=== PATIENT | female | born 1950 | race Caucasian/White ===

== ENCOUNTER 2025-04-12 21:14 | Inpatient (IN) | payer MEDICARE, SELFPAY ==
[2025-04-12 14:47] VITALS: BP 138/77
[2025-04-12 15:23] VITALS: BMI 26.7
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
[2025-04-12 16:33] LABS: ALT (SGPT) < 10 U/L (0-35); AST (SGOT) 16 U/L (14-36); Albumin 3.9 g/dl (3.5-5.0); Alkaline Phosphatase 76 U/L (38-126); Blood Urea Nitrogen 14 mg/dl (7-17); Calcium 8.8 mg/dl (8.4-10.2); Carbon Dioxide 24 mmol/L (22-30); Chloride 109 mmol/L (98-107); Estimated Creatinine Clearance 70 ml/min; Glucose 111 mg/dl (70-99); Potassium 4.2 mmol/L (3.5-5.1); Sodium 140 mmol/L (135-145); Total Protein 7.6 g/dl (6.3-8.2); eGFR > 60.00
[2025-04-12 16:44] LABS: Hematocrit 25.1 % (37.0-47.0); Hemoglobin 7.1 g/dL (12.0-16.0); Mean Corp Hgb Conc. 28.3 g/dL (33.0-37.0); Mean Corpuscular Volume 65.2 fL (81.0-99.0); Nucleated Red Blood Cells % 0 %; Platelet Count 737 10^3/uL (130-400); Red Cell Dist. Width 19.3 % (11.5-14.5)
[2025-04-12 16:49] LABS: Normal RBC Morphology No
[2025-04-12 16:50] LABS: Anisocytosis 1+; Hypochromasia 1+; Macrocytosis 1+; Ovalocytes Occasional; Spherocytes 1+; Tear Drop Red Blood Cells 1+
[2025-04-12] MEDS: MAXIPIME 2000 MG IV (19:24)
[2025-04-12] MEDS: VANCOCIN 540 MG IV (19:45)
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
[2025-04-12 21:53] VITALS: BP 116/65
--- NOTE | 2025-04-12 22:37 | PHA.VAN.IN ---
Assessment
- Assessment
Renal Function: Unknown baseline
Concomitant Antimicrobials: CEFEPIME
- Previous Dosing Experience
Previous Regimen: NONE
AUC Dosing Plan
- Dosing Variables
Dosing Weight (kg): 77.1
Dosing CrCl (ml/min): 70
Vd coefficient (L/kg): 0.7
- Empiric Dosing
Initial / Loading Dose: 2GM
Maintenance Regimen: 750MG IV Q12H
Estimated AUC (mcg*h/mL): 459
Estimated Peak (mcg*h/mL): 26.3
Estimated Trough (mcg/ml): 13.2
Estimated Half Life (H): 11.1
Pharmacokinetics Vancomycin I
- -
Patient Age: 74
Patient Sex: Female
Vancomycin Day #: 1
Indication: Bone And Joint
Requesting Provider: KIMBERLEY
Height / Weight:
Height 5 ft 7 in
Actual Weight 77.111 kg
Pertinent Past Medical History: NO PMH
- Vital Signs / Lab Results
Temp Pulse Resp BP Pulse Ox
99.1 F 78 16 116/65 98
04/12/25 14:47 04/12/25 21:53 04/12/25 21:53 04/12/25 21:53 04/12/25 21:53
Lab Results - Hematology
04/12/25
15:54
WBC 10.7
Lab Results - Chemistry
04/12/25
15:54
BUN 14
Creatinine 0.7
Estimated Creat Clear 70
Albumin 3.9
04/12/25
15:54
Lactic Acid 1.3
[2025-04-12 23:01] VITALS: BP 137/72; BMI 23.1
[2025-04-12 23:13] LABS: Iron 21 ug/dl (37-170)
[2025-04-12 23:22] LABS: Total Iron Binding Capacity 441 ug/dl (265-497)
[2025-04-12 23:49] LABS: Ferritin 3.8 ng/ml (11.1-264.0)
[2025-04-13] VITALS (7 sets, daily range): BP systolic 108–139; BP diastolic 59–86; BMI 22.5
[2025-04-13] MEDS: MAXIPIME 2000 MG IV (04:32)
[2025-04-13] MEDS: STERILE WATER FOR INJECTION 10 ML IV (04:32)
[2025-04-13] MEDS: VANCOCIN 150 IV (06:13)
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
[2025-04-13 08:11] LABS: Hematocrit 21.8 % (37.0-47.0); Hemoglobin 6.3 g/dL (12.0-16.0); Mean Corp Hgb Conc. 28.9 g/dL (33.0-37.0); Mean Corpuscular Volume 64.7 fL (81.0-99.0); Platelet Count 590 10^3/uL (130-400); Red Cell Dist. Width 19.0 % (11.5-14.5)
[2025-04-13 08:36] LABS: Blood Urea Nitrogen 9 mg/dl (7-17); Calcium 8.6 mg/dl (8.4-10.2); Carbon Dioxide 20 mmol/L (22-30); Chloride 110 mmol/L (98-107); Estimated Creatinine Clearance 81 ml/min; Glucose 99 mg/dl (70-99); Potassium 4.2 mmol/L (3.5-5.1); Sodium 137 mmol/L (135-145); eGFR > 60.00
[2025-04-13 09:02] LABS: LDH 168 U/L (120-246); Magnesium 2.3 mg/dl (1.6-2.3)
[2025-04-13 09:06] LABS: Reticulocyte Count 1.1 % (0.4-2.8)
--- NOTE | 2025-04-13 10:31 | CON.ONC ---
Consultation
-
Date Consultation Requested: 04/13/25
Date Consultation Performed: 04/13/25
Requesting Provider: Ahmet Deleon
Performing Provider: prasanth hernandez
Reason for Consultation: skin lesion c/f malignancy
Impression
Impression
- right chest wound
- Severe iron deficiency anemia
Plan
Plan
# chest wound
- slowly growing ulcerated mass involving right chest wall over 1 year per pt that started as small 'pimple'. no fevers, increased warmth or WBC to support infectious etiology.
- CT chest showed large ST defect extending to clavicle with osteomyelitis changes in bone. no cervical or axillary adenopathy on exam. no chest adenopathy or lung lesions in imaging.
- s.p bx today. path pending.
# Iron Deficiency anemia
- severe TUCKER on presentation with hgb down to 6.3 g/dl today, ferritin 3.5 ng/ml. Unclear if this is all from wound. denies melena, BRBPR, hematuria.
- s/p 1 unit pRBCs ordered.
- agree with IV iron repletion in-pt. recommend continuing PO ferrous sulfate 325 mg daily on discharge.
will arrange hematology follow up to review pending path and ongoing anemia management.
Patient History
History of Present Illness
Alice is a 74y F with no known PMH who presented to ED for evaluation of draining wound on the R shoulder. She first noted a small red lesion over the R clavicle approximately one year ago that progressively grew larger, ulcerated with
occasional bleeding and yellow discharge. labs on admission notable for hgb 7.1 g/dl, microcytic with severe iron depletion. Lactate, WBC normal. CT chest showed large soft tissue defect along the anterior/superior aspect of the right shoulder
extending to the underlying clavicle which demonstrates probable chronic osteomyelitis change. No overt soft tissue abscess. A component of acute osteomyelitis is not excluded by CT. no suspicious lung nodules or adenopathy. She does not follow up
with 's regularly. Denies melena, BRBPR, hematuria. Denies new back or bone pain, abdominal pain, ZUNIGA, dizziness, fevers. Hgb drop to 6.3 g/dl today, ordered 1 unit pRBCs and started on IV iron.
Patient Medication
�Medication �Instructions �Recorded �Confirmed �Last Taken �Type
Doterra Vitamin Supplement 3 active pill PO DAILY Supplement 04/12/25 04/12/25 Unknown History
Active Medications
Generic Name Dose Route Start Last Admin
Trade Name Freq PRN Reason Stop Dose Admin
Acetaminophen 650 mg 04/12/25 22:23
Acetaminophen 325 Mg Tablet PO 05/10/25 22:22
Q4HPRN PRN
Mild Pain / Temp > 101
Cefepime HCl 2,000 mg 04/13/25 04:00 04/13/25 04:32
Cefepime Hcl 2,000 Mg/12.5 Ml Vial IV 2,000 mg
Q8H FREEMAN Administration
Vancomycin HCl 750 mg in 150 mls @ 150 mls/hr 04/13/25 06:00 04/13/25 06:13
Vancocin IV 150 mls
Q12H FREEMAN Administration
Protocol
Ferric Sodium Gluconate 110 mls @ 110 mls/hr 04/13/25 14:00
Complex 125 mg/ Sodium IV 04/17/25 14:59
Chloride DAILY@1400 FREEMAN
Sodium Chloride 0 flush 04/12/25 23:00
Sodium Chloride 0.9% (Flush) Syringe IV 05/10/25 22:59
PER PROTOCOL FREEMAN
Sterile Water 10 ml 04/13/25 04:00 04/13/25 04:32
Sterile Water For Injection 10 Ml Vial IV 05/11/25 03:59 10 ml
Q8H FREEMAN Administration
Review of Systems
-
History Source: Patient
Constitutional: Reports Fatigue; Denies Fever or Weight Loss
Respiratory: Denies Cough or Trouble Breathing
Cardiac: Denies Chest Pain or Palpitations
GI: Denies Abdominal Pain, Nausea, Diarrhea, Bloody Stools or Black Stools
: Denies Bleeding or Dark Urine
Musculoskeletal: Denies Joint Pain
Skin: Reports Other (right chest wound )
Neuro: Denies Dizzy, Headache or Lightheadedness
Hematologic/Lymphatic: Reports Bleeding (from wound ); Denies Swollen Glands or Bruising
Physical Exam
-
General: Well Developed, Well Nourished and No Apparent Distress
HEENT: Negative Jaundice
Cardiology: Normal Sinus Rhythm
Pulmonary: Clear; Negative Rhonchi
GI: Soft; Negative Distended
Musculoskeletal: No Cyanosis and No Edema
Extremities: Negative Edema
Neurology: Non Focal and No Lateralizing Symptoms
Skin: Lesions (large ulcerated lesion with serosanguinous discharge, hyperpigmented surrounding skin without marked erythema. )
Hematologic / Lymphatic: No Lymphadenopathy
Labs
Lab Results
WBC 8.2 10^3/uL (4.8-10.8) 04/13/25 06:41
RBC 3.37 10^6/uL (4.20-5.40) L 04/13/25 06:41
Hgb 6.3 g/dL (12.0-16.0) L* 04/13/25 06:41
Hct 21.8 % (37.0-47.0) L 04/13/25 06:41
MCV 64.7 fL (81.0-99.0) L 04/13/25 06:41
MCH 18.7 pg (27.0-31.0) L 04/13/25 06:41
MCHC 28.9 g/dL (33.0-37.0) L 04/13/25 06:41
RDW 19.0 % (11.5-14.5) H 04/13/25 06:41
Plt Count 590 10^3/uL (130-400) H 04/13/25 06:41
MPV 9.4 fL (7.4-10.4) 04/13/25 06:41
Abs Immat Gran (auto) 0.0 10^3/uL (0-0.05) 04/12/25 15:54
Absolute Neuts (auto) 8.3 10^3/uL (1.4-6.5) H 04/12/25 15:54
Absolute Lymphs (auto) 1.6 10^3/uL (1.2-3.4) 04/12/25 15:54
Absolute Monos (auto) 0.7 10^3/uL (0.1-0.6) H 04/12/25 15:54
Absolute Eos (auto) 0.0 10^3/uL (0-0.7) 04/12/25 15:54
Absolute Basos (auto) 0.1 10^3/uL (0-0.2) 04/12/25 15:54
Immature Gran % 0.2 % (0-0.5) 04/12/25 15:54
Neutrophils % 77.6 % (42.2-75.2) H 04/12/25 15:54
Lymphocytes % 14.6 % (20.5-51.1) L 04/12/25 15:54
Monocytes % 6.9 % (1.7-9.3) 04/12/25 15:54
Eosinophils % 0.2 % (0-6) 04/12/25 15:54
Basophils % 0.5 % (0-2) 04/12/25 15:54
Creatinine 0.6 mg/dL (0.6-1.0) 04/13/25 06:41
Vital Signs
Vital Signs
Temp Pulse Resp BP Pulse Ox
97.9 F 78 18 139/86 98
04/13/25 07:49 04/13/25 07:49 04/13/25 07:49 04/13/25 07:49 04/13/25 07:49
[2025-04-13] MEDS: XYLOCAINE 2% WITH EPINEPHRINE 20 ML INFIL (11:05)
--- NOTE | 2025-04-13 11:07 | WOUNDNOTE ---
RIGHT SHOULDER WOUND
--- NOTE | 2025-04-13 11:07 | WOUNDNOTE ---
RIGHT SHOULDER WOUND
--- NOTE | 2025-04-13 11:09 | PHA.VAN.FU ---
Vancomycin Assessment / Plan
- Assessment
Renal Function: Stable
WBC's are: WNL
In the past 24 hrs, patient has been: Afebrile
Concomitant Antimicrobials: cefepime
- Dosing Plan
Continue: Vanc 750mg Q12H
- Monitoring Plan
No level(s) ordered at this time: consider levels in next few days
- Follow Up
Pharmacy will continue to follow.
Vancomycin Follow UP
- -
Patient Age: 74
Patient Sex: Female
Vancomycin Day #: 2
Indication: Bone And Joint
Requesting Provider: Dr. Palomo
Pertinent Antimicrobial Allergies:
no pertinent antibiotic allergies
Height / Weight:
Height 5 ft 7 in
Actual Weight 65.005 kg
- Vital Signs / Lab Results
Temp Pulse Resp BP Pulse Ox
97.9 F 78 18 139/86 98
04/13/25 07:49 04/13/25 07:49 04/13/25 07:49 04/13/25 07:49 04/13/25 07:49
Lab Results - Hematology
04/12/25 04/13/25
15:54 06:41
WBC 10.7 8.2
Lab Results - Chemistry
04/12/25 04/13/25
15:54 06:41
BUN 14 9
Creatinine 0.7 0.6
Estimated Creat Clear 70 81
Albumin 3.9
04/12/25
15:54
Lactic Acid 1.3
--- NOTE | 2025-04-13 11:09 | WOUNDNOTE ---
[facility] RN NOTE: Reviewed chart and met with patient. Per chart review and patient report, wound has evolved over the past [address] demonstrates probable osteomyelitis. See worklist for measurements. No odor noted and patient denies pain and
discomfort. A moderate amount of serous drainage was noted. Wound left covered with ABD's as biopsy is planned shortly. Discussed wound care options with patient with the goal being comfort and drainage management. Patient prefers to keep ABDs in
place at this time, but may be agreeable packed gauze at a later time. Support given to patient throughout assessment. Patient ambulates, turns and is on a [employer]um[employer]. Heels and sacrum intact. KARYN Fraire given update. Will follow as needed.
--- NOTE | 2025-04-13 11:35 | CON.GS ---
Addendum entered and electronically signed by Misael Carvalho MD 04/13/25 12:30:
I was physically present and personally performed the kilgore portions of the surgical evaluation and/or procedure with the resident. I discussed the findings, reviewed the resident�s note, and confirmed the medical decision-making. I provided direct
supervision as required and agree with the assessment and plan as documented with the following additions/corrections:
74F lives alone with 1 year history of festering wound to right chest and clavicle area. Reports weight loss over this period as well. On exam a [id number] fungating mass is present with fibrinous exudate and rolled borders is present. There is no
fluctuance or odor. is consulted for biopsy.
Procedure in detail:
Informed consent obtained
Skin prepped with betadine
1% lido with epi infiltrated into the skin
3mm punch biopsy x2 obtained from the edge of the lesion incorporating normal skin
Hemostasis achieved with direct pressure
DSD applied.
Change dressing daily or as needed for saturation
Local wound care
Pt was advised this is likely malignancy and the prognosis is likely poor.
All other care as per primary team
Pls call with questions
Original Note:
Consultation
-
Date/Time Consultation Requested: 04/12/2025
Date/Time Consultation Performed: 04/13/2025
Requesting Provider: [place]
Performing Provider: Misael Carvalho
Reason for Consultation: Ulcerated wound-right chest
Medical History
-
Chief Complaint: 74 y/o F with no known PMH presents to ED for R shoulder wound evaluation
History of Present Illness:
Patient is a 74y F with no known PMH who presents to ED for evaluation of wound on the R shoulder. Patient states that she initially noted a small red lesion over the R clavicle at least a year ago and that it appeared shortly after she had a
brief shock / electrocution while changing a light bulb in a lamp. This was a small, flat, red spot that gradually increased in size. It then 'opened up' in the middle. Patient denies any blistering, pustule, pimple appearing lesion. The opening
became progressively larger. Patient states that this wound bled occasionally, as well as produced thick, yellow drainage/discharge. Patient states that she was applying Neosporin without any improvement in her symptoms. Patient states that she
doesn't see a PCP regularly. She also states that she tried to be healthy by eating alot of soups and salads. Patient denies noticing any weight change, but admits she used to be 200 lbs and now her clothes are too big for her. When asked, patient
states she probably lost all that weight because she doesn't have much of an appetite. Patient rates her pain a 0/10 and states that she didn't even really notice how bad her wound had gotten until her friends pointed it out and encouraged her to
come into the ED. When the patient was told that this wound could be cancerous and that she'd need a biopsy, she didn't seem to grasp the full weight of the situation. She hated even the thought of having to go through radiation and chemotherapy,
stating that those treatments are poisonous to the body and that she would rather try an alternative like Vitamin C.
Past Medical History
Past Medical History: None (Patient seems to be unable to remember. )
Past Surgical History: None
Social History
Tobacco: Non-Smoker
Alcohol: Occasional
Drug: None
Personal: Single
Living: Alone
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
Family History
Family History: Reviewed & Noncontributory and Other (Patient states that all her immediate relatives are including her parents and her siblings. )
Allergies / Home Medications
Allergy/AdvReac Type Severity Reaction Status Date / Time
222aspirin Allergy facial Verified 04/12/25 16:22
swelling
in 2006
ibuprofen Allergy facial Verified 04/12/25 16:22
swelling
in 2006
�Medication �Instructions �Recorded �Confirmed �Type
Doterra Vitamin Supplement 3 active pill PO DAILY Supplement 04/12/25 04/12/25 History
Review of Systems
-
Unable to obtain full review of systems at this time due to: Acuity
History Source: Patient
All other systems: Negative unless noted
Constitutional: Weight Gain (Patient states she gained approximately 25 lbs over the past month. )
Skin: Other (Large ulcerated lesion over R anterior shoulder. Nodular edges. Scant sanguinous discharge. )
A 10 point review of systems was completed, and was negative except as per HPI.
Physical Exam
Vital Signs
Temp Pulse Resp BP Pulse Ox
97.9 F 78 18 139/86 98
04/13/25 07:49 04/13/25 07:49 04/13/25 07:49 04/13/25 07:49 04/13/25 07:49
04/12/25 04/13/25 04/14/25
06:59 06:59 06:59
Actual Weight 65.005 kg
Body Mass Index (BMI) 22.5
Lab Results
04/13/25 06:41
04/13/25 06:41
WBC 8.2 10^3/uL (4.8-10.8) 04/13/25 06:41
Hgb 6.3 g/dL (12.0-16.0) L* 04/13/25 06:41
Hct 21.8 % (37.0-47.0) L 04/13/25 06:41
Plt Count 590 10^3/uL (130-400) H 04/13/25 06:41
Abs Immat Gran (auto) 0.0 10^3/uL (0-0.05) 04/12/25 15:54
Neutrophils % 77.6 % (42.2-75.2) H 04/12/25 15:54
AFVSS: Afebrile. Normotensive.
Labs: WBC Count WNL. RBC is very low at 6.3. Patient needs a blood transfusion.
Chest CT with IV Contrast: Large soft tissue defect along the anterior/superior aspect of the right shoulder extending to the underlying clavicle which demonstrates probable chronic osteomyelitis change. No overt soft tissue abscess.
Physical Exam
General: No Apparent Distress and Comfortable
HEENT: Normocephalic, Anicteric and Atraumatic
Respiratory: Non Labored Respirations
Skin: Other (Large ulcerated lesion over R anterior shoulder. Nodular edges. Scant sanguinous discharge.)
Psych: Calm
Data Reviewed
-
CT Scan: Report Reviewed by me
Critical Care Time (in minutes): 45
Total Time Spent with Patient (in minutes): 60
Assessment / Plan
-
74 y/o F with no known PMH presenting to the ED for evaluation of wound on right shoulder.
Patient is informed that wound might be cancerous.
Confirm pathology via Biopsy of edge of the ulcerated skin wound.
Biopsy performed. Samples collected. Wound repacked. Pending pathology.
Patient is informed that surgery is not a viable treatment plan to treat her wound because it is too evolved.
Patient is informed that she might have to undergo radiation and chemotherapy, depending on pathology results.
Heme/Onc consult needed for low hemoglobin (needs a blood transfusion), and to discuss pathology results.
Psychiatric consult requested to help patient process stressful news.
WBC count WNL and afebrile
Patient can be discharged
Pending pathology review of biopsy specimen results, patient will be informed of next steps.
[2025-04-13 12:12] LABS: Folate 15.1 ng/ml (2.76-20); Vitamin B12 390 pg/ml (239-931)
[2025-04-13] MEDS: MAXIPIME IV (12:34)
--- NOTE | 2025-04-13 12:34 | CON.ID ---
Consultation
-
Date/Time Consultation Requested: 04/12/2025 2223
Date/Time Consultation Performed: 04/13/2025 1200
Requesting Provider: Dr. Head
Performing Provider: Dr. Espino
Reason for Consultation: Right chest wound
Chief Complaint / Past History
History of Present Illness
Alice Bean is a 74-year-old female being evaluated at the request of Dr. Palomo in regards to a right chronic chest wound. History is obtained from chart review, along with patient interview.
The patient has no significant past medical history that she knows of, and states that approximately 6 to 12 months ago she recalls changing a light bulb and she was 'shocked' by it. Thereafter, she noted a small red area on her right
supraclavicular area. Over the intervening time the area has grown in size and has ulcerated. She reports that she has been keeping it clean and washing it daily. She has been using frankincense, along with cedar tree oil to the area and believes
that it 'may be helping'. Ultimately, her friends noted the ulceration, and advised her to come to the emergency room for further care.
Since admission, the area has been imaged by CAT scan and has suggested osteomyelitis. A biopsy of the area has been taken today by General Surgery.
The patient denies any fevers or chills. She denies any specific pain, but notes that the area is 'sore '.
Past History
Past Medical History: None
Past Surgical History: Other (Hernia repair)
Allergy History:
aspirin Allergy (Verified 04/12/25 16:22)
facial swelling in 2006
ibuprofen Allergy (Verified 04/12/25 16:22)
facial swelling in 2006
Medications Reviewed: Yes
Current Antibiotics:
Vancomycin
Cefepime
Social History
Tobacco: Non-Smoker
Alcohol: Occasional
Drug: None
Personal: Single
Living: Alone
Employment: Retired
Family History
Family History: Not Pertinent
Review of Systems
Vital Signs
Temp Pulse Resp BP Pulse Ox
97.9 F 78 18 139/86 98
04/13/25 07:49 04/13/25 07:49 04/13/25 07:49 04/13/25 07:49 04/13/25 07:49
Physical Exam
Physical Exam
Constitutional: No Acute Distress, Well Developed, Comfortable and Non-toxic
Eyes: No Conjunctival Hemorrhage and Sclera Anicteric
Oral: No Thrush and No Ulcers
Cardiovascular: S1/S2; Negative S3/S4
Pulmonary: Non Labored
Gastrointestinal: Soft, Non Tender, Non Distended and Normal Bowel Sounds
Extremities: Negative Edema, Cyanosis or Erythema
Wound: Other (Right supraclavicular wound with fungating tissue. No noted purulence or significant drainage.)
Neurological: Awake and Alert
Psychological: Calm
Lab / Diagnostic Study Results
04/13/25 06:41
04/13/25 06:41
Abs Immat Gran (auto) 0.0 10^3/uL (0-0.05) 04/12/25 15:54
Absolute Neuts (auto) 8.3 10^3/uL (1.4-6.5) H 04/12/25 15:54
Absolute Lymphs (auto) 1.6 10^3/uL (1.2-3.4) 04/12/25 15:54
Absolute Monos (auto) 0.7 10^3/uL (0.1-0.6) H 04/12/25 15:54
Absolute Basos (auto) 0.1 10^3/uL (0-0.2) 04/12/25 15:54
Immature Gran % 0.2 % (0-0.5) 04/12/25 15:54
Neutrophils % 77.6 % (42.2-75.2) H 04/12/25 15:54
Lymphocytes % 14.6 % (20.5-51.1) L 04/12/25 15:54
Monocytes % 6.9 % (1.7-9.3) 04/12/25 15:54
Eosinophils % 0.2 % (0-6) 04/12/25 15:54
Basophils % 0.5 % (0-2) 04/12/25 15:54
Lactic Acid 1.3 mmol/L (0.7-2.0) 04/12/25 15:54
Microbiology Results
Micro:
04/12/25 23:35 MRSA Screen - Pending
Nose
04/12/25 15:54 Blood Culture - Pending
Blood/Venous
04/12/25 15:54 Blood Culture - Pending
Blood/Venous
Imaging:
04/12/2025 CT chest with IV contrast: There is a large soft tissue defect along the anterior/superior aspect of the right shoulder, extending to the underlying clavicle with demonstrates probable chronic osteomyelitis changes. No overt soft tissue
abscess. Acute component of acute osteomyelitis is not excluded by CAT scan. A small nodule in the lingula, likely benign.
Assessment / Plan
Right anterior chest wall fungating mass
Right clavicular osteomyelitis by CAT scan
- Suspect malignant infiltration of the bone rather than osteomyelitis.
Anemia
Recommendations:
Exam of the wound does not reveal significant findings of infection.
Given clinical appearance, suspect all findings are secondary to the yet undetermined malignancy. (?Basal cell, ?Squamous cell)
Discontinue further antibiotics.
Continue with local care to the right clavicular area.
Await pathology.
Care Review
Plan reviewed with: Physician (Hospitalist)
[2025-04-13] MEDS: STERILE WATER FOR INJECTION IV (12:35)
--- NOTE | 2025-04-13 13:06 | CON.MD ---
Consultation - Medical
-
patient seen chart reviewed. discussed with nursing. a friend was at the bedside. this consult was done today april 13 2025. patient is a 74 year old woman who comes to er with a lesion on her chest which she thought originated with a burn. she
was rx it with frankincense and dedar tree oil but a friend convinced her to come to er. at this point there is concern that this represents a malignancy. the patient was also noted to be severely anemic. she admits she had lost a lot of weight but
in many ways felt okay. she just thought it was so hot her appetite was diminished. she is an active person and had continued to mow her lawn with a tractor. she said she continued to see friends. she is active in a local tenriism. when i saw her she
was quite literally chowing down on a huge omelet with toast yoghut fruit cocktail and several beverages. she told me she loves to eat. she did understand that she might have a malignancy and was praying this was not the case. she has no hx of
treatment for depression or anxiety except when there were painful life events eg the sudden of her brother in the sleep is okay she has never had suicidal thoughts. energy level was s/w diminshed but she thought it was the heat
spoke with nursing who did not see patient as depressed and described she was easy to care for.
past psych hx see above
past medical hx see above re chest lesion. severe anemia patient says she will have transfusion. takes vitamins denies any acute ongoing medical complaints.
substance abuse denied
fh denied
social resides in own home. takes care of grounds about an acre on her own. retired. worked in [employer] for many years. has + friends. belongs to a tenriism. raised locally denies hx of trauma patient tells me she has always been a rebellious sort
not given to observing conventions. also told me saravanan is her man.
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
by her medical issues is not good but when you speak to her she does NOT seem at all irrational
dx adjustment d/o
plan i really do not see any treatable mental illness here today. this patient appeared to me to be decidely undepressed. one might say she is in denial but at this point she told me she would just wait and see what the outcome of her bx was. i
don't see any need for psychotropic meds. she does have friends and a community to support her. psych will sign off.
--- NOTE | 2025-04-13 16:37 | CM ---
Alert awake oriented patient who lives alone in a 2 story home with 12 steps to enter. SHe has a stair glide. She is independent in activates of daily living.She does drive .No adaptive devices.Friends Michelle and Johanne were visiting pt.Pt receiving
blood transfusion.
No VN in past . No SNF hx
Pharmacy [facility]
PCP Dr Cosme
PLAN Home with no needs
[2025-04-13] MEDS: FERRLECIT 110 MG IV (16:41)
[2025-04-14 07:05] VITALS: BP 119/80
[2025-04-14 08:22] LABS: ALT (SGPT) < 10 U/L (0-35); AST (SGOT) 14 U/L (14-36); Albumin 3.3 g/dl (3.5-5.0); Alkaline Phosphatase 65 U/L (38-126); Blood Urea Nitrogen 11 mg/dl (7-17); Calcium 8.5 mg/dl (8.4-10.2); Carbon Dioxide 23 mmol/L (22-30); Chloride 109 mmol/L (98-107); Estimated Creatinine Clearance 70 ml/min; Glucose 78 mg/dl (70-99); Potassium 4.5 mmol/L (3.5-5.1); Sodium 138 mmol/L (135-145); Total Protein 6.6 g/dl (6.3-8.2); eGFR > 60.00
[2025-04-14 08:52] LABS: Hematocrit 24.8 % (37.0-47.0); Hemoglobin 7.2 g/dL (12.0-16.0); Mean Corp Hgb Conc. 29.0 g/dL (33.0-37.0); Mean Corpuscular Volume 66.5 fL (81.0-99.0); Nucleated Red Blood Cells % 0 %; Platelet Count 605 10^3/uL (130-400); Red Cell Dist. Width 20.1 % (11.5-14.5)
--- NOTE | 2025-04-14 10:19 | W.PN.HOSP.TC ---
Today's Communication/Plan
-
dc
Assessment / Plan
Assessment / Plan
74yo F with PMHx of RLE Fx in 2010, not following with any doctors attempting to remain healthy with lifestyle came after her friends insisted her to have attention by Dr due to progressive wound on R shouder started approxiamtely 9 months ago.
Wound is large on anterior R shoulder with raised borders and suspiscious for malignancy. CT showed large soft tissue defect along the anterior/superior aspect of the right shoulder extending to the underlying clavicle which demonstrates probable
chronic osteomyelitis change. No overt soft tissue abscess. A component of acute osteomyelitis is not excluded by CT, however with appearance of the wound - ID stopped Abx since high suspiscion for CA. Hem/Onc evaluated patient and will follow as
outpatient as agreed on the day of d/c via [employer]. received 1 unit PRCB and to cont with PO iron after 2 IV injections in hospital. Medically stable for d/c for outpatient follow up. Referral to Hem/Onc and ID to be provided
Stressed out need to establish PCP P[facility] according to location and insurance coverage - patient will have to find one
A/P:
#R shoulder wound with probably acute on chronic vs chornic OM vs skin malignancy extending to the bone
CT done: large soft tissue defect along the anterior/superior aspect of the right shoulder extending to the underlying clavicle which demonstrates probable chronic osteomyelitis change. No overt soft tissue abscess. A component of acute
osteomyelitis is not excluded by CT
Cefepime/Vanco started in ED, and stopped by ID consult, since high concern for cancer rather then infectious etiology
Bcx NTD
[facility] did wound Cx and biopsy on 04/14/25
Oncology consult: to be followed as outpatient
#TUCKER
patient did not notice black stools or over blood in stool
justin IV
Hematology consult: outpatient f/u
will need colonoscopy/EGD as outpatient
Check FOBT - RN informed
Transfuse for Hgb<7 - received 1 unit PRBC
Outpatient GI consult
B12, folate WNL
#small nodule in the lingula
follow up as outpatient with repeated CT in 3-6 months
DVT ppx SCDs
FUll code
I have spent at least 38min reviewing chart, test results, communication with consultants and providing direct patient care
Anticipated Discharge: Today
Subjective/Interval History
-
Date of Service: April 14, 2025
Objective Data
-
Labs:
Laboratory Results
04/14/25
07:08
WBC 7.8
Hgb 7.2 L
Hct 24.8 L
Plt Count 605 H
Sodium 138
Potassium 4.5
Chloride 109 H
Carbon Dioxide 23
BUN 11
Creatinine 0.7
Glucose 78
Calcium 8.5
Total Bilirubin 0.4
AST 14
ALT < 10
Alkaline Phosphatase 65
Vital Signs:
Vital Signs
Temp Pulse Resp BP Pulse Ox
97.8 F 83 16 119/80 99
04/14/25 07:05 04/14/25 07:05 04/14/25 07:05 04/14/25 07:05 04/14/25 07:05
I&O
04/13/25 04/14/25 04/15/25
06:59 06:59 06:59
Intake Total 0 / 0 490 / 490
Balance 0 / 0 490 / 490
Review of Systems
-
History Source: Patient
All other systems: Reviewed and negative
Physical Exam
-
General: No Apparent Distress
HEENT: Normocephalic
Neuro: Awake, Alert, Oriented and AO x 3
Psych: Calm
--- NOTE | 2025-04-14 10:27 | W.DCSUMMARY ---
Discharge Summary
Discharge Data
Date of Admission: 04/12/25
Date of Discharge: 04/14/25
-
Pending Results: Yes
Additional Pending Results:
biopsy
Hospital Course
74yo F with PMHx of RLE Fx in 2010, not following with any doctors attempting to remain healthy with lifestyle came after her friends insisted her to have attention by Dr due to progressive wound on R shouder started approxiamtely 9 months ago.
Wound is large on anterior R shoulder with raised borders and suspiscious for malignancy. CT showed large soft tissue defect along the anterior/superior aspect of the right shoulder extending to the underlying clavicle which demonstrates probable
chronic osteomyelitis change. No overt soft tissue abscess. A component of acute osteomyelitis is not excluded by CT, however with appearance of the wound - ID stopped Abx since high suspiscion for CA. Hem/Onc evaluated patient and will follow as
outpatient as agreed on the day of d/c via [employer]. received 1 unit PRCB and to cont with PO iron after 2 IV injections in hospital. Medically stable for d/c for outpatient follow up. Referral to Hem/Onc and ID to be provided. Patient did not
provide stool sample for FOBT, but sool was reported to be brown. Medcially stable for d/c home
Stressed out need to establish PCP [facility]A according to location and insurance coverage - patient will have to find one
I have spent at least 38min reviewing chart, test results, communication with consultants and providing direct patient care
Patient was managed for:
#R shoulder wound with probably acute on chronic vs chornic OM vs skin malignancy extending to the bone
#TUCKER
#small nodule in the lingula
Discharge Plan
-
Patient Disposition: Home (Routine Discharge)
Discharge Diagnosis/Procedures: L shoulder wound
Diet: Regular
Others Tests: repeat CT chest for nodule in 3 months - schedule with PCP, age appropriate cancer screening advised
Activity Restrictions/Additional Instructions:
Wound Care Instructions Right Shoulder- Clean with saline and cover with ABD's OR pack with dry or lightly moistened saline gauze and cover with ABD, secure with paper tape.
Referrals:
Dianna Sauceda DO [Active, Hematology / Oncology] - in less than 1 week
Referral Note: results of shoulder wound biopsy, TUCKER
Nati Cosme DO [Family Provider, [facility]]
Karly Tobias DO [Active, Gastroenterology] - in four to six weeks
Referral Note: colonoscopy
Prescriptions:
New
ferrous sulfate 325 mg (65 mg iron) tablet
325 mg PO DAILY Qty: 30 0RF
Discontinued
Doterra Vitamin Supplement
3 active pill PO DAILY
Discharge Orders:
Discharge Patient (As Directed); Ordered 04/14/25
Ordered By: Ahmet Deleon
Discharge Date and Time
Print Language: ALBANIAN
--- NOTE | 2025-04-14 10:59 | CM ---
CM met with pt and friend bedside
DC order noted
Plan for home no needs
IMM verbally reviewed
Pt without PCP and has not seen one in 10+ years
Discussed importance of setting up PCP care
Resident clinic provided
She plans to drive self home
Discharge Disposition- home, no needs
[2025-04-14] MEDS: FERRLECIT 110 MG IV (14:08)
[2025-04-14 15:10] VITALS: BP 110/70
== END 2025-04-14 16:50 | disposition home or self-care (01) | DRG 541 ==
LOC: 4 EAST ACU 21:14
PROVIDERS: ADMITTING PHYSICIAN Hospitalist; ATTENDING PHYSICIAN Internal Medicine; CONSULT PHYSICIAN Internal Medicine Hematology & Oncology; CONSULT PHYSICIAN Internal Medicine Infectious Disease; CONSULT PHYSICIAN Psychiatry & Neurology Psychiatry; CONSULT PHYSICIAN Surgery; EMERGENCY PHYSICIAN Student in an Organized Health Care Education/Training Program; FAMILY PHYSICIAN Family Medicine
PROC: 0HB5XZX Excision of Chest Skin, External Approach, Diagnostic (ICD-10-PCS; 2025-04-13)
PROC: 30233N1 Transfusion of Nonautologous Red Blood Cells into Peripheral Vein, Percutaneous Approach (ICD-10-PCS; 2025-04-13)
DX: M86.111 Other acute osteomyelitis, right shoulder (principal); M86.611 Other chronic osteomyelitis, right shoulder; D50.9 Iron deficiency anemia, unspecified; D75.839 Thrombocytosis, unspecified; R91.1 Solitary pulmonary nodule; L98.491 Non-pressure chronic ulcer of skin of other sites limited to breakdown of skin; T75.4XXA Electrocution, initial encounter; T21.01XS Burn of unspecified degree of chest wall, sequela; T79.9XXA Unspecified early complication of trauma, initial encounter; W86.0XXA Exposure to domestic wiring and appliances, initial encounter; Y93.89 Activity, other specified; Y92.009 Unspecified place in unspecified non-institutional (private) residence as the place of occurrence of the external cause; Z60.2 Problems related to living alone; Z88.6 Allergy status to analgesic agent
CPT/HCPCS: 71260; 80048; 80053; 82607; 82728; 82746; 83540; 83550; 83605; 83615; 83735; 85025; 85027; 85045; 86850; 86900; 86901; 86920; 87040; 87070; 87147; 88305; 96365; 96366; 96375; 99284; J2916; P9016; Q9967

== ENCOUNTER → 2025-05-01 15:17 | Outpatient (REF) | payer MEDICARE, OTHER, SELFPAY | LOC: CLAB 15:17 | PROVIDERS: ATTENDING PHYSICIAN Surgery | DX: R22.2 Localized swelling, mass and lump, trunk (principal) | CPT/HCPCS: 88305 ==

== ENCOUNTER → 2025-05-23 12:54 | Outpatient (REF) | payer MEDICARE, OTHER, SELFPAY ==
[2025-05-23 13:56] LABS: Iron 108 ug/dl (37-170)
[2025-05-23 14:05] LABS: Total Iron Binding Capacity 414 ug/dl (265-497)
[2025-05-23 14:29] LABS: Ferritin 7.8 ng/ml (11.1-264.0)
[2025-05-23 15:06] LABS: Hematocrit 34.0 % (37.0-47.0); Hemoglobin 10.4 g/dL (12.0-16.0); Mean Corp Hgb Conc. 30.6 g/dL (33.0-37.0); Mean Corpuscular Volume 77.1 fL (81.0-99.0); Nucleated Red Blood Cells % 0 %; Platelet Count 548 10^3/uL (130-400)
[2025-05-23 15:53] LABS: Normal RBC Morphology No
[2025-05-23 15:54] LABS: Anisocytosis 2+; Hypochromasia 1+; Macrocytosis 1+; Microcytosis 1+
== END ==
LOC: OIDL 12:54
PROVIDERS: ATTENDING PHYSICIAN Internal Medicine Hematology & Oncology
DX: D50.9 Iron deficiency anemia, unspecified (principal); C44.612 Basal cell carcinoma of skin of right upper limb, including shoulder
CPT/HCPCS: 82728; 83540; 83550; 85025

== ENCOUNTER → 2025-06-18 10:20 | Outpatient (REF) | payer MEDICARE, OTHER, SELFPAY ==
[2025-06-18 10:35] LABS: Glucose 113 mg/dl (70-99)
== END ==
LOC: PET 10:20
PROVIDERS: ATTENDING PHYSICIAN Internal Medicine Hematology & Oncology
DX: C44.612 Basal cell carcinoma of skin of right upper limb, including shoulder (principal); D50.9 Iron deficiency anemia, unspecified
CPT/HCPCS: 36415; 82947

== ENCOUNTER → 2025-06-21 09:29 | Outpatient (REF) | payer MEDICARE, OTHER, SELFPAY ==
[2025-06-21 10:08] LABS: Hematocrit 36.2 % (37.0-47.0); Hemoglobin 11.2 g/dL (12.0-16.0); Mean Corp Hgb Conc. 30.9 g/dL (33.0-37.0); Mean Corpuscular Volume 82.1 fL (81.0-99.0); Nucleated Red Blood Cells % 0 %; Platelet Count 414 10^3/uL (130-400); Red Cell Dist. Width 22.0 % (11.5-14.5)
[2025-06-21 11:40] LABS: ALT (SGPT) 13 U/L (0-35); AST (SGOT) 15 U/L (14-36); Albumin 3.7 g/dl (3.5-5.0); Alkaline Phosphatase 84 U/L (38-126); Blood Urea Nitrogen 10 mg/dl (7-17); Calcium 9.1 mg/dl (8.4-10.2); Carbon Dioxide 22 mmol/L (22-30); Chloride 108 mmol/L (98-107); Glucose 97 mg/dl (70-99); Potassium 4.5 mmol/L (3.5-5.1); Sodium 137 mmol/L (135-145); Total Protein 7.2 g/dl (6.3-8.2); eGFR > 60.00
== END ==
LOC: REG 09:29
PROVIDERS: ATTENDING PHYSICIAN Internal Medicine Hematology & Oncology
DX: D50.9 Iron deficiency anemia, unspecified (principal); C44.612 Basal cell carcinoma of skin of right upper limb, including shoulder; M86.9 Osteomyelitis, unspecified
CPT/HCPCS: 36415; 80053; 82550; 84443; 85025

== ENCOUNTER → 2025-07-23 10:21 | Outpatient (REF) | payer MEDICARE, OTHER, SELFPAY ==
[2025-07-23 11:42] LABS: Hematocrit 39.6 % (37.0-47.0); Hemoglobin 12.5 g/dL (12.0-16.0); Mean Corp Hgb Conc. 31.6 g/dL (33.0-37.0); Mean Corpuscular Volume 84.4 fL (81.0-99.0); Nucleated Red Blood Cells % 0 %; Platelet Count 451 10^3/uL (130-400); Red Cell Dist. Width 17.7 % (11.5-14.5)
[2025-07-23 12:22] LABS: ALT (SGPT) 19 U/L (0-35); AST (SGOT) 18 U/L (14-36); Albumin 3.9 g/dl (3.5-5.0); Alkaline Phosphatase 75 U/L (38-126); Blood Urea Nitrogen 17 mg/dl (7-17); Calcium 9.3 mg/dl (8.4-10.2); Carbon Dioxide 27 mmol/L (22-30); Chloride 101 mmol/L (98-107); Glucose 118 mg/dl (70-99); Potassium 4.2 mmol/L (3.5-5.1); Sodium 134 mmol/L (135-145); Total Protein 7.3 g/dl (6.3-8.2); eGFR > 60.00
== END ==
LOC: REG 10:21
PROVIDERS: ATTENDING PHYSICIAN Internal Medicine Hematology & Oncology
DX: D50.9 Iron deficiency anemia, unspecified (principal); C44.612 Basal cell carcinoma of skin of right upper limb, including shoulder; M86.9 Osteomyelitis, unspecified
CPT/HCPCS: 36415; 80053; 84443; 85025